=== PATIENT | female | born 1960 | race Caucasian/White ===

== ENCOUNTER → 2016-07-10 | Outpatient (CLI) | payer BC ==
--- NOTE | 2016-07-12 14:58 | MAMMOGRAPHY REPORT ---
BILATERAL DIGITAL SCREENING MAMMOGRAM TOMOSYNTHESIS WITH CAD: 07/10/2016 CLINICAL HISTORY: Routine screening. Patient has no complaints. TECHNIQUE: Breast tomosynthesis in addition to standard 2D mammography was performed. Current study was also evaluated with a Computer Aided Detection (CAD) system. COMPARISON: Comparison is made to exams dated: 11/29/2013 mammogram, 09/04/2009 mammogram - [facility], 08/30/2008, 10/07/2006, and 07/17/2005 mammogram - [facility]. BREAST COMPOSITION: The tissue of both breasts is almost entirely fatty. FINDINGS: There is an oval 16 mm circumscribed mass seen within the left upper outer quadrant, for which ultrasound is recommended for further evaluation. The remainder of both breasts are stable compared to prior exams, without suspicious masses, calcifi cations, or areas of architectural distortion noted. A linear scar marker denotes a scar on the lef t upper inner breast. IMPRESSION: ACR BI-RADS CATEGORY 0: INCOMPLETE EVALUATION: NEED ADDITIONAL IMAGING EVALUATION Left upper outer quadrant breast mass, for which ultrasound is recommended for further evaluation. The patient will be called to schedule an appointment. Approximately 10% of breast cancers are not detected with mammography. A negative mammographic repor t should not delay biopsy if a clinically suggestive mass is present. Dian Crespo M.D. /:07/11/2016 17:00:23 [employer] Project Manager: Susi ALEXANDER(Shade)(Don), [facility] letter sent: Addl Imaging 0 BI-RADS Code: ACR BI-RADS Category 0: Incomplete Evaluation: Need Additional Imaging Evaluation
== END | disposition home or self-care (01) ==
LOC: C.MAMM 13:51
PROVIDERS: ATTEND Family Medicine
DX: Z12.31 Encounter for screening mammogram for malignant neoplasm of breast (principal); N63 Unspecified lump in breast

== ENCOUNTER → 2016-07-19 | Outpatient (CLI) | payer BC ==
--- NOTE | 2016-07-19 15:42 | MAMMOGRAPHY REPORT ---
ULTRASOUND OF LEFT BREAST: 07/19/2016 CLINICAL HISTORY: Callback from screening mammogram for left breast mass. COMPARISON: Comparison is made to exams dated: 11/29/2013 mammogram, 09/04/2009 mammogram - [facility], 08/30/2008, 10/07/2006, 10/07/2006, and 10/07/2006. TECHNIQUE: Real-time targeted ultrasound of the left breast was performed. FINDINGS: Real-time, high resolution targeted ultrasound was performed of the left upper outer quadrant in the region of the mammographic mass seen on the recent screening mammogram. In the left breast at 3:00 , 5 cm from the nipple, there is a lobulated solid circumscribed slightly hypoechoic mass which merline ures 1.2 x 0.7 x 0.7 cm. This corresponds with the mammographic mass. The mass is increased in siz e compared to prior exams mammographically. The mass is indeterminant and ultrasound guided core ne edle biopsy is recommended for further evaluation. IMPRESSION: ACR BI-RADS CATEGORY 4: SUSPICIOUS - FOLLOW-UP RECOMMENDED Hypoechoic solid 1.2 cm mass in the left breast at 3:00 on ultrasound, which corresponds with the ma mmographic mass. The mass is indeterminate and ultrasound-guided core needle biopsy is recommended for further evaluation. A phone call was made to the physician's office to confirm faxed results were received. The patient was verbally notified of the results. She tentatively scheduled the biopsy before leaving the depa rtment. Dian Crespo M.D. ah/:07/19/2016 10:35:58 Package Handler: Rhianna VILLALOBOS)(Don), [facility] letter sent: Abnormal 4/5 BI-RADS Code: ACR BI-RADS Category 4: Suspicious
== END | disposition home or self-care (01) ==
LOC: C.MAMM 10:05
PROVIDERS: ATTEND Family Medicine
DX: N63 Unspecified lump in breast (principal)

== ENCOUNTER → 2016-07-26 | Outpatient (CLI) | payer BC ==
--- NOTE | 2016-07-26 11:34 | Discharge Instructions ---
Discharge Instructions Procedure Procedure Date: July 26, 2016. Reason for visit: Left Mass. Discharge Discharge Date: July 26, 2016. Discharge Diagnosis: status post breast biopsy Instructions Activity Recommendations: Additional Limitations (see below) Return to School/Work: no limitations Recommended Home Diet: No Limitations Provider Instructions: ACTIVITY RECOMMENDATIONS: * No lifting, pushing, pulling or exercising the affected side for three days. RETURN TO SCHOOL/WORK: * You may return to work/school after the procedure, but do not perform any strenuous activities for 24 to 48 hours. MEDICATIONS: * Tylenol (two 325 mg) every four to six hours if needed for mild pain (if not allergic to Tylenol). DIET: * Resume previous diet. SPECIAL CARE INSTRUCTIONS: * Keep biopsy site dry for 24 hours. May shower after 24 hours, but do not soak (bathe) incision. * May remove Tegaderm (plastic patch) tomorrow AFTER showering. * Leave the steri-strips on for one week. Allow the steri-strips to fall off by themselves. If not off after one week, you may remove them. You may place a Bandaid crosswise over the strips, if desired. * Apply ice 10 minutes on and 10 minutes off as needed. * Wear a bra at bedtime to sleep more comfortably for 2-3 days. * Your referring physician should have the results after approximately 5 to 7 business days. * Call for unusual bleeding, fever, drainage, etc or if you have any questions call during normal business hours or after hours call Dr Crespo, [phone]. FOLLOW UP VISIT: Follow-up with Referring Physician as scheduled. Allergies Coded Allergies: No Known Allergies (Unverified , 07/17/12) Kiana Cunha Recommendations: Call your doctor if: * Temperature above 101 degrees * Pain not relieved by pain medicine ordered * There is increased drainage or redness from any incision * You have any unanswered questions or concerns. Your Doctors Instructions noted above were prepared by provider Dian Crespo. Patient Signature Section: Patient Instructions Signature Page Juani Collier Patient (or Guardian) Signature/Date: I have read and understand the instructions given to me by my caregivers. Caregiver/RN/Doctor Signature/Date: The above-named patient and/or guardian has received patient instructions on this date. + Original Patient Signature Page (only) stays with chart. Please make copy for patient.
--- NOTE | 2016-07-26 15:08 | MAMMOGRAPHY REPORT ---
ULTRASOUND GUIDED BIOPSY LEFT BREAST: 07/26/2016 CLINICAL HISTORY: Left 3:00 breast mass. PATIENT CONSENT: The procedure, risks and benefits were discussed with the patient and informed writ ten consent was obtained. A timeout was performed immediately prior to the procedure. PROCEDURE DESCRIPTION: With ultrasound guidance, aseptic technique, and lidocaine as the local anest hetic (1% lidocaine to anesthetize the skin and 1% lidocaine with epinephrine to anesthetize the blanca per tissues), the mass of concern in the left 3:00 breast was sampled 4 times with a 14-gauge Achiev e biopsy needle. Immediately thereafter, with ultrasound guidance, aseptic technique, and lidocaine as the local anesthetic, a metallic localizer clip was placed centrally in the mass. Direct pressu re was applied to the site immediately post procedure and hemostasis was achieved. Postprocedure un ilateral mammograms were performed to confirm placement of the clip in the expected location of the breast mass. The patient tolerated the procedure without complication. She was given wound care i nstructions. The specimens were sent to pathology for analysis. COMPARISON: Comparison is made to exams dated: 07/10/2016 mammogram, 11/29/2013 mammogram, 09/04/2009 mammogram - [facility], and 08/30/2008. IMPRESSION: ULTRASOUND GUIDED BIOPSY Ultrasound guided biopsy of a left 3:00 breast mass, with clip placement. The patient will receive pathology results from her referring provider. Dian Crespo M.D. /:07/26/2016 11:52:22 Grinding Room Inspector: Isela VILLALOBOS)(Don), [facility]
--- NOTE | 2016-07-26 15:08 | MAMMOGRAPHY REPORT ---
UNILATERAL LEFT DIGITAL DIAGNOSTIC MAMMOGRAM: 07/26/2016 CLINICAL HISTORY: Status post ultrasound-guided biopsy of a left 3 o'clock breast mass. TECHNIQUE: Postprocedural left CC and ML views were obtained. COMPARISON: Comparison is made to exams dated: 07/19/2016 ultrasound, 07/10/2016 mammogram, 11/29/2013 mammogram, and 09/04/2009 mammogram - [facility]. BREAST COMPOSITION: The tissue of the left breast is almost entirely fatty. FINDINGS: A new biopsy marker clip is seen at the site of the biopsied left 3:00 breast mass. No p ostbiopsy hematoma is seen. IMPRESSION: POST PROCEDURE IMAGING FOR MARKER PLACEMENT New biopsy marker clip status post left breast ultrasound guided biopsy. Pathology results are pend ing. Approximately 10% of breast cancers are not detected with mammography. A negative mammographic repor t should not delay biopsy if a clinically suggestive mass is present. Dian Crespo M.D. ah/:07/26/2016 11:53:57 Electric Meter Tester Shop: Isela ALEXANDER(R)(M), [facility] BI-RADS Code: Post Procedure Imaging For Marker Placement
== END | disposition home or self-care (01) ==
LOC: C.MAMM 10:59
PROVIDERS: ATTEND Family Medicine
DX: D24.2 Benign neoplasm of left breast (principal)

== ENCOUNTER → 2017-07-14 | Outpatient (CLI) | payer OTHER ==
--- NOTE | 2017-07-15 12:47 | MAMMOGRAPHY REPORT ---
BILATERAL DIGITAL SCREENING MAMMOGRAM TOMOSYNTHESIS WITH CAD: 07/14/2017 CLINICAL HISTORY: Routine screening. Patient has no complaints. TECHNIQUE: Breast tomosynthesis in addition to standard 2D mammography was performed. Current study was also evaluated with a Computer Aided Detection (CAD) system. COMPARISON: Comparison is made to exams dated: 07/26/2016 mammogram, 07/10/2016 mammogram, 11/29/2013 m ammogram, 09/04/2009 mammogram - [facility], and 08/30/2008. BREAST COMPOSITION: There are scattered areas of fibroglandular density in both breasts. FINDINGS: There is a circumscribed and lobulated mass with associated ribbon-shaped biopsy marker cl ip in the upper outer posterior left breast, representing the biopsy-proven fibroadenoma. Mammograph ically, it appears increased in size comparing to last years mammograms, currently measuring 13 x 15 x 12 mm, previously measured 11 x 14 x 8 mm. Although this could be due to mammogram positioning, de finitive characterization with additional spot compression tomosynthesis views and possible ultrasoun d are recommended. An asymmetry is seen slightly superior and anterior to the biopsied mass on the l eft MLO view, which should also be assessed with spot compression tomosynthesis views and possible ul trasound although this could represent normal overlapping tissue. No other suspicious mass, architectural distortion or cluster of microcalcifications is seen bilatera lly. IMPRESSION: ACR BI-RADS CATEGORY 0: INCOMPLETE EVALUATION: NEED ADDITIONAL IMAGING EVALUATION The possibly increasing, previously biopsied mass in the left upper outer posterior breast, and asymm etry in the superior posterior left breast need additional imaging evaluation. The patient will be called to schedule an appointment. Approximately 10% of breast cancers are not detected with mammography. A negative mammographic report should not delay biopsy if a clinically suggestive mass is present. Karen Nevarez M.D. ay/:07/14/2017 15:24:45 Bushing [employer] Broach Operator: Whitley ALEXANDER(Shade)(M), [facility] letter sent: Addl Imaging 0 BI-RADS Code: ACR BI-RADS Category 0: Incomplete Evaluation: Need Additional Imaging Evaluation
== END | disposition home or self-care (01) ==
LOC: C.MAMM 10:23
PROVIDERS: ATTEND Family Medicine
DX: Z12.31 Encounter for screening mammogram for malignant neoplasm of breast (principal)